=== PATIENT | male | born 1950 | race Caucasian/White ===

== ENCOUNTER → 2020-07-13 07:00 | Outpatient (CLI) | payer MEDICARE, SELFPAY ==
[2020-06-30 11:21] VITALS: BMI 27.2
--- NOTE | 2020-07-13 07:01 | ECHOD_ITS ---
Reason For Study: ATRIAL FIB-FLUTTER Procedure This was a 2D Doppler, Color Flow transthoracic echocardiogram. Exam performed in department. Left Ventricle Normal LV size. Left ventricular systolic function is normal. The estimated ejection fraction is 60 %. Normal diastology for age. No regional wall motion abnormalities noted. Right Ventricle Normal right ventricle. Normal systolic function. Atria Normal left atrium. Normal right atrium. Mitral Valve Normal mitral valve. Trivial eccentric mitral valve insufficiency. Tricuspid Valve Normal tricuspid valve. Mild tricuspid valve insufficiency. Aortic Valve Normal aortic valve. Trisinus/trileaflet aortic valve. Pulmonic Valve Normal pulmonic valve. Great Vessels Normal aortic root. The pulmonary artery is normal size. Normal inferior vena cava. Pericardium/Pleural No pericardial effusion. MMode/2D Measurements & Calculations LVIDd: 4.0 cm IVSd: 0.85 cm Ao root diam: 3.1 cm LVIDs: 2.7 cm LVPWd: 0.79 cm RVDd: 3.3 cm FS: 32.7 % LAV(MOD-bp): 38.7 ml LVAd ap4: 31.1 cm2 SV(MOD-sp4): 58.1 ml LAV(MOD-bp) Indexed: 19.9 ml/m2 EDV(MOD-sp4): 96.0 ml LAV(MOD-sp2): 43.6 ml EDV(sp4-el): 101.5 ml LAV(MOD-sp4): 31.3 ml LVAs ap4: 17.7 cm2 ESV(MOD-sp4): 37.9 ml ESV(sp4-el): 39.4 ml EF(MOD-sp4): 60.5 % EF(sp4-el): 61.2 % SV(sp4-el): 62.1 ml LA A4 area: 14.0 cm2 LA dimension(2D): 3.5 cm RA A4 area: 10.8 cm2 Time Measurements MV dec time: 0.25 sec Doppler Measurements & Calculations MV E max scott: 79.9 cm/sec Lat Peak E' Scott: 8.7 cm/sec Med Peak E' Scott: 8.2 cm/sec MV A max scott: 75.1 cm/sec E/E' lat: 9.2 E/E' med: 9.8 MV E/A: 1.1 Ao V2 max: 159.8 cm/sec AI max scott: 404.8 cm/sec LV V1 max: 113.4 cm/sec Ao max P.2 mmHg AI max P.6 mmHg LV V1 max P.1 mmHg AI dec slope: 154.6 cm/sec2 AI P1/2t: 766.9 msec PA V2 max: 100.4 cm/sec TR max scott: 204.2 cm/sec TR max P.7 mmHg Interpretation Summary Normal LV size. Left ventricular systolic function is normal. The estimated ejection fraction is 60 %. Normal diastology for age. Structurally normal valves. Ordering Physician: Don Loyola Referring Physician: ANGEL MCNEILL Performed By: Patricia Simon RDCS
--- NOTE | 2020-07-13 17:26 | STRESSREP_ITS ---
Stress Test Report Exercise myocardial perfusion stress test. 69-year-old man with a history of atrial fibrillation. Stress protocol: Resting EKG demonstrates sinus bradycardia with a rate of 48 bpm normal intervals are noted resting blood pressure is 126/68 mmHg. The patient exercised according to regular Ady protocol for a total duration of 11 minute s. The maximum heart rate attained was 141 bpm which was 92% of max impacted heart rate the maximum workload was 13.4 metabolic equivalents. Patient completed 2 minutes into stage IV of the Ady protocol. The resting blood pressure was 126/68 with a peak blood pressure 170/72 which was a normal blood pressure response to exercise. Rate-pressure product was 21,700. At rest and during exercise there were upsloping ST changes only when he would not meet the criteria for ischemia. No clinical angina was noted. Myocardial perfusion protocol. 11.1 mCi of technetium 99m sestamibi was injected at rest. The patient exercised according to regular Ady protocol for a total duration of 11 minutes at peak exercise 32.9 mCi of technetium 99m sestamibi was injected stress images were obtained stress and rest images were reconstructed and compared in the short axis vertical long horizontal long axis. Gated images were also obtained Perfusion SPECT analysis: Review of the stress images demonstrate normal uptake of tracer noted in all areas of the myocardium the resting images similarly demonstrate normal uptake of tracer noted in all areas of the myocardium. No areas of reversibility are noted suggest ischemia no previous infarct is noted. Gated SPECT analysis: The gated ejection fraction is 72%. Conclusion: Normal exercise myocardial perfusion stress test at a high workload. Preserved ejection fraction. Excellent functional capacity.
== END ==
PROVIDERS: PCP Family Medicine; Referring Provider Internal Medicine Cardiovascular Disease; Visit Provider Internal Medicine Cardiovascular Disease
DX: I48.0 Paroxysmal atrial fibrillation (principal); R00.1 Bradycardia, unspecified; I48.92 Unspecified atrial flutter; I36.1 Nonrheumatic tricuspid (valve) insufficiency; I51.89 Other ill-defined heart diseases
CPT/HCPCS: 78452; 93017; 93306; A9500; A4216

== ENCOUNTER → 2020-10-18 11:44 | Outpatient (CLI) | payer MEDICARE, SELFPAY ==
[2020-06-30 11:21] VITALS: BMI 27.2
[2020-10-18 12:14] LABS: Absolute Lymphocyte Count 2.26 X10^3/uL (0.83-4.51); Basophil# 0.11 X10^3/uL; Basophil% 1.4 % (0-1); Eosinophil# 0.38 X10^3/uL; Hematocrit 45.3 % (40-54); Hemoglobin 14.5 g/dL (13.0-16.5); Lymphocyte # 2.26 X10^3/ul (4.0); Lymphocyte % 29.5 % (19-41); Mean Corpuscular Hgb 30.1 pg (27.0-32.0); Mean Platelet Vol. 10.6 fl (6.2-12.0); Monocyte# 0.85 X10^3/uL; Monocyte% 11.1 % (0-10); NRBC Flagged by Analyzer 0 % (0-5); Neutrophil # 3.99 X10^3/uL (2.7-7.7); Neutrophil % 52.1 % (47-70); Platelet Count 209 K/mm3 (150-450); RBC Distribution Width CV 13.6 % (11.6-14.6); RBC Distribution Width SD 46.1 fl (35.1-43.9); Red Blood Count 4.82 M/mm3 (4.6-6.2); White Blood Count 7.7 K/mm3 (4.4-11.0)
[2020-10-18 13:01] LABS: Anion Gap 2 (5-15); BUN 18 mg/dL (7-18); BUN/Creat Ratio 17.5 RATIO (10-20); Calcium,Total 8.7 mg/dL (8.5-10.1); Chloride 106 mmol/L (98-107); Creatinine, Serum 1.03 mg/dL (0.70-1.30); EST Glomerular Filtration Rate 76 mL/min (>60); Est Glom Filt Rate - Afr Amer 92 mL/min (>60); Glucose 80 mg/dL (74-106); Magnesium 2.4 mg/dL (1.6-2.6); Potassium 4.1 mmol/L (3.5-5.1); Sodium Level 140 mmol/L (136-145); Thyroid Stim Hormone (TSH) 2.28 uIU/mL (0.358-3.74)
== END ==
PROVIDERS: PCP Family Medicine; Referring Provider Internal Medicine Cardiovascular Disease; Visit Provider Internal Medicine Cardiovascular Disease
DX: I48.0 Paroxysmal atrial fibrillation (principal); Z79.899 Other long term (current) drug therapy
CPT/HCPCS: 36415; 80048; 83735; 84443; 85025; 93225; 93226

== ENCOUNTER → 2021-04-17 06:15 | Outpatient (CLI) | payer MEDICARE, SELFPAY ==
[2020-06-30 11:21] VITALS: BMI 27.2
--- NOTE | 2021-04-17 14:22 | STRESSREP_ITS ---
Stress Test Report Exercise myocardial perfusion stress test. 70-year-old male with a history of paroxysmal atrial fibrillation. Stress protocol: Resting EKG demonstrates sinus bradycardia with a rate of 55 bpm normal intervals are noted resting blood pressure is 122/76 mmHg. The patient exercised according to the regular Ady protocol for total duration of 11 minutes. Patient completed 2 minutes into stage IV of the Ady protocol. The maximum heart rate 136 bpm which was 89% of maximum predicted heart rate the maximum workload was 13.4 metabolic equivalents. Patient maintained sinus rhythm throughout the recording no atrial fibrillation was noted. The peak blood pressure was 174/70 mmHg. Myocardial perfusion protocol. 10.8 mCi of technetium 99m sestamibi was injected at rest. The patient exercised according to regular Ady protocol for 11 minutes and at peak exercise 32.4 mCi of technetium 99m sestamibi was injected stress images were o btained stress and rest images were reconstructed and compared in the short axis vertical long and horizontal long axis. Gated images were also obtained. Perfusion SPECT analysis: Review of the stress images demonstrate normal uptake of tracer noted in all areas of the myocardium. The resting images similarly demonstrate normal uptake of tracer noted in all areas of the myocardium. No areas of reversibility were noted to suggest ischemia and no previous infarct is noted. Gated SPECT analysis: The gated ejection fraction is 70%. Conclusion: Normal exercise myocardial perfusion stress test at a high workload. Preserved ejection fraction. No atrial fibrillation noted.
== END ==
PROVIDERS: PCP Family Medicine; Referring Provider Internal Medicine Cardiovascular Disease; Visit Provider Internal Medicine Cardiovascular Disease
DX: I48.0 Paroxysmal atrial fibrillation (principal); Z79.899 Other long term (current) drug therapy; R94.31 Abnormal electrocardiogram [ECG] [EKG]
CPT/HCPCS: 78452; 93017; A9500; A4216

== ENCOUNTER → 2023-02-11 | Outpatient (CLI) | payer MEDICARE, SELFPAY ==
--- NOTE | 2023-02-11 09:58 | ECHOD_ITS ---
Reason For Study: Afib Procedure This was a 2D Doppler, Color Flow transthoracic echocardiogram. Exam performed in department. Left Ventricle Normal LV size. Left ventricular systolic function is normal. The estimated ejection fraction is 60 %. Normal diastology for age. No regional wall motion abnormalities noted. Right Ventricle Normal RV size. Normal systolic function. Atria Normal left atrium. Normal right atrium. Mitral Valve Normal mitral valve. Mild (1+) eccentric mitral valve insufficiency. Tricuspid Valve Normal tricuspid valve. Mild tricuspid valve insufficiency. Pulmonary artery systolic pressure is 30 mmHg. Aortic Valve Trisinus/trileaflet aortic valve. Mild (1+) aortic valve insufficiency. Pulmonic Valve Normal pulmonic valve. Great Vessels Normal aortic root. The pulmonary artery is normal size. Normal inferior vena cava. Pericardium/Pleural No pericardial effusion. MMode/2D Measurements & Calculations LVIDd: 4.7 cm IVSd: 1.0 cm Ao root diam: 3.2 cm LVIDs: 2.9 cm LVPWd: 0.92 cm RVDd: 3.6 cm FS: 38.0 % LAV(MOD-bp): 48.3 ml LVAd ap4: 29.4 cm2 SV(MOD-sp4): 52.2 ml LAV(MOD-bp) Indexed: 24.8 ml/m2 LVLd ap4: 8.1 cm LAV(MOD-sp2): 51.2 ml EDV(MOD-sp4): 87.1 ml LAV(MOD-sp4): 38.2 ml EDV(sp4-el): 90.4 ml LVAs ap4: 16.3 cm2 LVLs ap4: 6.3 cm ESV(MOD-sp4): 34.9 ml ESV(sp4-el): 35.7 ml EF(MOD-sp4): 59.9 % EF(sp4-el): 60.5 % SV(sp4-el): 54.7 ml LA A4 area: 16.8 cm2 LA dimension(2D): 3.9 cm RA A4 area: 13.1 cm2 Time Measurements MV dec time: 0.24 sec Doppler Measurements & Calculations MV E max scott: 96.5 cm/sec Lat Peak E' Scott: 11.0 cm/sec Med Peak E' Scott: 10.2 cm/sec MV A max scott: 62.7 cm/sec E/E' lat: 8.8 E/E' med: 9.5 MV E/A: 1.5 Ao V2 max: 163.8 cm/sec AI max scott: 418.1 cm/sec MV dec slope: 394.4 cm/sec2 Ao max P.7 mmHg AI max P.9 mmHg Ao V2 mean: 115.0 cm/sec Ao mean P.1 mmHg AI dec slope: 187.5 cm/sec2 Ao V2 VTI: 39.2 cm AI P1/2t: 653.0 msec LV V1 max: 117.3 cm/sec PA V2 max: 115.2 cm/sec PI end-d soctt: 101.0 cm/sec LV V1 max P.5 mmHg TR max scott: 255.6 cm/sec TR max P.1 mmHg ECHO/Echo Complete Interpretation Summary Normal LV size. Left ventricular systolic function is normal. The estimated ejection fraction is 60 %. Normal diastology for age. Pulmonary artery systolic pressure is 30 mmHg. Ordering Physician: Essence Casanova Referring Physician: Rick Geller Performed By: Uzma Mcnulty RDCS, RVT
== END | disposition home or self-care (01) ==
PROVIDERS: PCP Family Medicine; Visit Provider Nurse Practitioner Gerontology
DX: I48.0 Paroxysmal atrial fibrillation (principal)
CPT/HCPCS: 93306